=== PATIENT | female | born 1950 | race Caucasian/White ===

== ENCOUNTER 2025-01-08 15:53 | Inpatient (IN) | payer MEDICARE ==
[~2025-01-08] VITALS: Ht 157.5 cm; Wt 52.2 kg
[2025-01-08 16:04] VITALS: O2SAT 98
[2025-01-08] MEDS ORDERED: MAGNESIUM HYDROXIDE 30 ML UDC PO PRN (18:00)
[2025-01-08] MEDS ORDERED: TEMAZEPAM 7.5 MG CAPSULE PO PRN (18:00)
[2025-01-08] MEDS ORDERED: LORAZEPAM 0.5 MG TABLET PO PRN (18:00)
[2025-01-08] MEDS ORDERED: ACETAMINOPHEN 325 MG TABLET PO PRN (18:00)
[2025-01-08] MEDS ORDERED: MAG HYDROX/AL HYDROX/SIMETH 30 ML UDC PO PRN (18:00)
[2025-01-08] MEDS: BLOOD SUGAR DIAGNOSTIC 1 EACH STRIP IN ONE (18:25)
[2025-01-08 18:33] VITALS: BP 163/64; TEMP 97.9
[2025-01-08 20:00] VITALS: BP 146/62; TEMP 98.1; O2SAT 98
[2025-01-09 08:00] VITALS: BP 141/70; TEMP 97.7; O2SAT 97
[2025-01-09 12:15] LABS: ASPARTATE AMINOTRANSFERASE 16.0 U/L (15-37); CALCIUM, SERUM 8.7 mg/dL (8.5-10.1); CREATININE 1.1 mg/dL (0.6-1.3); SODIUM SERUM 136.0 mmol/L (136-145); TOTAL PROTEIN, SERUM 6.9 g/dL (6.4-8.2); UREA NITROGEN, BLOOD 22.0 mg/dL (7-18)
[2025-01-09 12:15] LABS: LDL 94 mg/dL (0-99)
[2025-01-09] MEDS: CLOTRIMAZOLE 1% 15 GM TUBE TP SCH (13:30)
[2025-01-09 16:00] VITALS: BP 146/79; TEMP 97.9; O2SAT 98
[2025-01-09] MEDS: SERTRALINE HCL 25 MG TABLET PO SCH (16:27)
[2025-01-09 17:47] LABS: CREATININE 1.3 mg/dL (0.6-1.3)
[2025-01-09] MEDS: NICOTINE PATCH (14MG) 14 MG PATCH.TD24 TD SCH (18:53)
[2025-01-09 22:23] VITALS: BP 133/78; TEMP 97.8; O2SAT 98
[2025-01-10 08:00] VITALS: BP 160/65; TEMP 98; O2SAT 98
[2025-01-10 14:57] VITALS: BP 145/75; TEMP 97.3
[2025-01-10 16:06] VITALS: BP 157/63; TEMP 98.2; O2SAT 99
[2025-01-10 20:33] VITALS: BP_SYST 135; BP_SYST 160; BP_DIAS 78; BP_DIAS 80; TEMP 98; O2SAT 97
[2025-01-11 08:00] VITALS: BP 132/71; TEMP 97.8; O2SAT 98
[2025-01-11] MEDS: FLUCONAZOLE (100 MG) 100 MG TABLET PO SCH (08:38)
[2025-01-11] MEDS: KETOCONAZOLE 2% CREAM 15 GM TUBE TP SCH (09:10)
[2025-01-11 20:15] VITALS: BP 128/70; TEMP 98.1; O2SAT 98
[2025-01-12 08:16] VITALS: BP 127/54; TEMP 98.2; O2SAT 99
[2025-01-12] MEDS: LOSARTAN POTASSIUM 25 MG TABLET PO SCH (09:33)
[2025-01-12 15:23] VITALS: BP 107/53; TEMP 97.7; O2SAT 98
[2025-01-12 20:40] VITALS: BP 145/73; TEMP 98.1; O2SAT 98
[2025-01-13 03:17] VITALS: BP 110/68; TEMP 97.6
[2025-01-13 08:13] VITALS: BP 114/56; TEMP 98.8; O2SAT 97
[2025-01-13 15:40] VITALS: BP 131/51; TEMP 97.9; O2SAT 99
[2025-01-13 19:51] VITALS: BP 158/55; TEMP 97.9; O2SAT 100
[2025-01-14 02:55] VITALS: BP 112/69; TEMP 97.8
[2025-01-14 08:00] VITALS: BP 134/42; TEMP 97.7; O2SAT 99
[2025-01-14 16:08] VITALS: BP 145/50; TEMP 98.1; O2SAT 100
[2025-01-14] MEDS: SERTRALINE HCL 50 MG TABLET PO SCH (16:16)
[2025-01-14 19:48] VITALS: BP 141/51; TEMP 98.1; O2SAT 100
[2025-01-15 07:03] LABS: PLATELET COUNT (AUTO) 390 K/uL (150-450); RED BLOOD CELL COUNT(AUTO) 3.41 MIL/uL (4.0-5.2); RED CELL DISTRIBUTION WIDTH 17.2 % (11.5-15.0); WHITE BLOOD COUNT (AUTO) 6.8 K/uL (4.3-11.0)
[2025-01-15 07:35] LABS: IRON, SERUM 50.0 ug/dl (50-175)
[2025-01-15 07:52] LABS: CALCIUM, SERUM 9.0 mg/dL (8.5-10.1); CREATININE 1.3 mg/dL (0.6-1.3); SODIUM SERUM 140.0 mmol/L (136-145); UREA NITROGEN, BLOOD 25.0 mg/dL (7-18)
[2025-01-15 08:00] VITALS: BP 146/65; TEMP 98.6; O2SAT 98
[2025-01-15] MEDS ORDERED: AZAT50TA18 PO (10:41)
[2025-01-15 15:54] LABS: APPEARANCE,URINE CLEAR (CLEAR); BLOOD, URINE NEGATIVE Ery/uL (NEGATIVE); LEUKOCYTE ESTERASE ,URINE NEGATIVE (NEGATIVE); NITRITE, URINE NEGATIVE (NEGATIVE); UGLUCOSE NEGATIVE (NEGATIVE)
[2025-01-15 16:00] VITALS: BP 141/88; TEMP 97.7; O2SAT 97
[2025-01-15 19:56] VITALS: BP 155/73; TEMP 97.8; O2SAT 100
[2025-01-16 08:00] VITALS: BP 120/56; TEMP 97.8; O2SAT 100
[2025-01-16 16:08] VITALS: BP 137/75; TEMP 97.6; O2SAT 100
[2025-01-16 17:45] LABS: APPEARANCE,URINE CLEAR (CLEAR); BLOOD, URINE NEGATIVE Ery/uL (NEGATIVE); LEUKOCYTE ESTERASE ,URINE 1+ (NEGATIVE); NITRITE, URINE NEGATIVE (NEGATIVE); UGLUCOSE NEGATIVE (NEGATIVE)
[2025-01-16 18:16] LABS: ADD URINE CULTURE YES
[2025-01-16 18:18] LABS: SQUAMOUS EPITHELIAL CELL,UR Few /HPF (None Seen)
[2025-01-17 08:00] VITALS: BP 145/65; TEMP 98.1; O2SAT 97
[2025-01-17] MEDS: CEPHALEXIN MONOHYDRATE 250 MG CAPSULE PO SCH (08:10)
[2025-01-17 16:00] VITALS: BP 134/56; TEMP 97.7; O2SAT 100
[2025-01-17 20:17] VITALS: BP 157/77; TEMP 98.4; O2SAT 100
[2025-01-18 08:00] VITALS: BP 144/57; TEMP 98.8; O2SAT 98
[2025-01-18 14:57] VITALS: BP 144/59; TEMP 98
[2025-01-18 16:11] VITALS: BP 142/59; TEMP 98.7; O2SAT 98
[2025-01-18 21:45] VITALS: BP 149/57; TEMP 98.3; O2SAT 98
[2025-01-19 08:00] VITALS: BP 121/72; TEMP 97.5; O2SAT 97
[2025-01-19 16:00] VITALS: BP 149/52; TEMP 97.5; O2SAT 97
[2025-01-19 21:07] VITALS: BP 146/56; TEMP 97.7; O2SAT 97
[2025-01-20 09:21] VITALS: BP 123/58; TEMP 97.8; O2SAT 97
== END 2025-01-20 14:45 | DRG 885 ==
LOC: ER 16:00 → GPS 16:42
PROVIDERS: ADMIT Psychiatry & Neurology Psychosomatic Medicine; ATTEND Nurse Practitioner Family
PROC: 0HBRXZZ Excision of Toe Nail, External Approach (ICD-10-PCS; principal; 2025-01-10)
DX: F32.1 Major depressive disorder, single episode, moderate (principal); Z59.00 Homelessness unspecified; F29 Unspecified psychosis not due to a substance or known physiological condition; Z73.6 Limitation of activities due to disability; B35.1 Tinea unguium; L60.2 Onychogryphosis; Z20.822 Contact with and (suspected) exposure to COVID-19; F39 Unspecified mood [affective] disorder; R41.9 Unspecified symptoms and signs involving cognitive functions and awareness
CPT/HCPCS: 36415; 70450-TC; 80048-TC; 80053-TC; 80061-TC; 81001; 82565-TC; 82607-TC; 82728-TC; 82962-TC; 83540-TC; 83735-TC; 84439-TC; 84443-TC; 85025-TC; 87081-TC; 87086-TC